=== PATIENT | male | born 1975 | race American Indian/Alaskan Native ===

== ENCOUNTER 2016-10-29 11:49 | Emergency (ER) | payer OTHER ==
[2016-10-29 12:01] VITALS: BP 142/90
--- NOTE | 2016-10-29 12:37 | Emergency Department Report ---
ED General Adult HPI - General Chief complaint: Skin Rash Stated complaint: RASH Time Seen by Provider: 10/29/16 12:23 Source: patient Mode of arrival: Ambulatory Limitations: No Limitations - History of Present Illness Initial comments: Patient comes in the ER today with complaints of a rash for the past week. Patient denies any significant change in his environment. Denies any change in diet. Patient does note that he has started using some black soap and not sure if that has anything to do with it. Patient does state that it is itchy but it does not hurt. Patient states the rash seemed to start on his forearms first and has spread to his torso. Patient denies any shortness of breath, fever, abdominal pain, chest pain. - Related Data Previous Rx's Medication Instructions Recorded Last Taken Type hydrOXYzine PAMOATE [Vistaril] 25 mg PO Q6HR PRN #24 capsule 10/29/16 Unknown Rx Allergies Allergy/AdvReac Type Severity Reaction Status Date / Time No Known Allergies Allergy Unverified 10/29/16 11:56 ED Review of Systems ROS: Stated complaint: RASH Other details as noted in HPI Constitutional: denies: chills, fever Eyes: denies: eye pain, eye discharge, vision change ENT: denies: ear pain, throat pain Respiratory: denies: cough, shortness of breath, wheezing Cardiovascular: denies: chest pain, palpitations Endocrine: no symptoms reported Gastrointestinal: denies: abdominal pain, nausea, diarrhea Genitourinary: denies: urgency, dysuria Musculoskeletal: denies: back pain, joint swelling, arthralgia Skin: rash. denies: lesions Neurological: denies: headache, weakness, paresthesias Psychiatric: denies: anxiety, depression Hematological/Lymphatic: denies: easy bleeding, easy bruising ED Past Medical Hx - Past Medical History Previous Medical History?: No - Surgical History Past Surgical History?: No - Social History Smoking Status: Never Smoker Substance Use Type: Alcohol - Medications Home Medications: Home Medications Medication Instructions Recorded Confirmed Last Taken Type hydrOXYzine PAMOATE [Vistaril] 25 mg PO Q6HR PRN #24 capsule 10/29/16 Unknown Rx ED Physical Exam - General Limitations: No Limitations General appearance: alert, in no apparent distress - Head Head exam: Present: atraumatic, normocephalic - Eye Eye exam: Present: normal appearance - ENT ENT exam: Present: mucous membranes moist - Neck Neck exam: Present: normal inspection - Respiratory Respiratory exam: Present: normal lung sounds bilaterally. Absent: respiratory distress - Cardiovascular Cardiovascular Exam: Present: regular rate, normal rhythm. Absent: systolic murmur, diastolic murmur, rubs, gallop - GI/Abdominal GI/Abdominal exam: Present: soft, normal bowel sounds - Rectal Rectal exam: Present: deferred - Extremities Exam Extremities exam: Present: normal inspection - Back Exam Back exam: Present: normal inspection - Neurological Exam Neurological exam: Present: alert, oriented X3 - Psychiatric Psychiatric exam: Present: normal affect, normal mood - Skin Skin exam: Present: warm, dry, intact, normal color, rash (patchy rash noted on trunk anteriorly, posteriorly as well as upper extremities. Rash has various sizes of lesions with circular full appearance and Leon tree type pattern to the back. Lesions are nonindurated and nontender.) ED Course Vital Signs 10/29/16 11:57 Temperature 97.8 F Pulse Rate 65 Respiratory 18 Rate Blood Pressure 142/90 O2 Sat by Pulse 100 Oximetry ED Medical Decision Making - Medical Decision Making Patient is nontoxic and hemodynamically stable. I informed patient that there is no tearful what he has. I'll prescribe him some Vistaril for any potential itch as needed. Also encouraged patient that if he wants to go out and the son briefly throughout the day that it may help the appearance of the rash. Patient is in agreement with treatment plan patient is stable for discharge. Critical care attestation.: If time is entered above; I have spent that time in minutes in the direct care of this critically ill patient, excluding procedure time. ED Disposition Clinical Impression: Pityriasis rosea Disposition: DC-01 TO HOME OR SELFCARE Is pt being admited?: No Does the pt Need Aspirin: No Condition: Good Instructions: Pityriasis rosea (ED) Prescriptions: hydrOXYzine PAMOATE [Vistaril] 25 mg PO Q6HR PRN #24 capsule PRN Reason: Itching Referrals: PRIMARY CARE,MD [Primary Care Provider] - 3-5 Days Forms: Work/School Release Form(ED) Time of Disposition: 12:37
== END 2016-10-29 12:49 | disposition home or self-care (01) ==
LOC: ED 11:49
DX: L42 Pityriasis rosea (principal)
CPT/HCPCS: 99282